=== PATIENT | female | born 1935 | race Caucasian/White ===

== ENCOUNTER 2018-03-17 08:46 | Outpatient (CLI) | payer OTHER ==
[~2018-03-17 08:46] MED LIST: ASPIR 8181 MG; ATACAND4 MG PO; CARDIZEM30 MG; LASIX20 MG; PREMPRO 0.3 MG/1 TAB PO; PROTONIX20 MG; SIMVASTATIN20 MG
== END 2018-03-17 08:52 | disposition home or self-care (01) ==
LOC: TOM 08:46
DX: R31.0 Gross hematuria (principal); N20.0 Calculus of kidney
CPT/HCPCS: 74178; Q9965

== ENCOUNTER 2022-03-12 07:38 | Outpatient (CLI) | payer OTHER | END 2022-03-12 07:45 | disposition home or self-care (01) | LOC: RAD 07:38 | PROVIDERS: ATTEND General Practice | DX: E04.2 Nontoxic multinodular goiter (principal); R13.10 Dysphagia, unspecified ==